=== PATIENT | female | born 1995 | race Two or more races ===

== ENCOUNTER 2019-08-25 13:24 | Emergency (ER) | payer MEDICAID ==
[~2019-08-25] VITALS: Ht 167.6 cm; Wt 113.6 kg
[2019-08-25 14:28] LABS: APPEARANCE,URINE CLOUDY (CLEAR); BILIRUBIN,URINE NEGATIVE (NEGATIVE); GLUCOSE, URINE (UA) >=1000 mg/dL (NEGATIVE); KETONES,URINE NEGATIVE (NEGATIVE); LEUKOCYTE ESTERASE ,URINE MODERATE (NEGATIVE); NITRATE,URINE NEGATIVE (NEGATIVE); OCCULT BLOOD,URINE TRACE (NEGATIVE); PROTEIN,URINE NEGATIVE (NEGATIVE); UROBILINOGEN,URINE 0.2 mg/dL (<=1.0)
[2019-08-25 14:42] LABS: BACTERIA,URINE Moderate /HPF (None Seen); RBC,URINE 0-2 /HPF (0-2); WBC,URINE 51-100 /HPF (0-5)
[2019-08-25 14:43] LABS: SQUAMOUS EPITHELIAL CELL,UR Many /LPF (None Seen)
[2019-08-25 16:49] LABS: GLUCOSE,POINT OF CARE 192 MG/DL (70-110)
[2019-08-25 17:10] VITALS: BP 142/90
[2019-08-25] MEDS ORDERED: CefTRIAXone SODIUM 1 GM/VIAL IM ONE (17:15)
[2019-08-25] MEDS ORDERED: AZITHROMYCIN 500 MG TABLET PO ONE (17:15)
[2019-08-25] MEDS ORDERED: LIDOCAINE 1% 10 ML VIAL IM ONE (17:15)
== END 2019-08-25 17:22 | disposition home or self-care (01) ==
LOC: EMS 13:27
DX: N39.0 Urinary tract infection, site not specified (principal); N89.8 Other specified noninflammatory disorders of vagina; E11.65 Type 2 diabetes mellitus with hyperglycemia; F32.9 Major depressive disorder, single episode, unspecified
CPT/HCPCS: 81001; 81025; 82962; 87086; 87210; 87491; 87591; 96372; 99283; J0696; J3490